=== PATIENT | male | born 1975 | race American Indian/Alaskan Native ===

== ENCOUNTER 2018-01-22 07:26 | Emergency (ER) | payer OTHER, BC ==
[2018-01-22 07:33] VITALS: BMI 26.5
[2018-01-22] MEDS ORDERED: Lidocaine 5% Patch TD ONE (08:00)
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
[2018-01-22 09:45] VITALS: BP 127/75; RESP 18; TEMP 98; O2SAT 96
[2018-01-22 09:46] VITALS: PULSE 65
== END 2018-01-22 09:45 | disposition home or self-care (01) ==
LOC: ED 07:26
DX: M54.2 Cervicalgia (principal); M54.9 Dorsalgia, unspecified; V49.49XA Driver injured in collision with other motor vehicles in traffic accident, initial encounter; Y92.411 Interstate highway as the place of occurrence of the external cause
CPT/HCPCS: 72125; 72131; 96372; 99284; J1885